=== PATIENT | male | born 1980 | race Caucasian/White ===

== ENCOUNTER 2021-11-25 09:23 | Emergency (ER) | payer BC, SELFPAY ==
[2021-11-25 09:38] VITALS: BP 132/84; PULSE 100; RESP 16; TEMP 37.4; O2SAT 95; BMI 25.4
--- NOTE | 2021-11-25 09:47 | ED.URI ---
HPI - URI/Sore Throat General Chief Complaint: Upper Respiratory Symptoms Stated Complaint: COVID+, fever, throat pain, cough, blacking out Time Seen by Provider: 11/25/21 09:28 History of Present Illness HPI Narrative: 40-year-old male nonsmoker without chronic medical problems presents with a chief complaint of ongoing fever, body aches, headache and sore throat. He states that he was diagnosed with COVID about 3 days ago. He is vaccinated but is not yet had his booster. He denies any GI symptoms such as nausea, vomiting or diarrhea. He denies any urinary complaints such as dysuria, frequency or urgency. He is in no significant work of breathing and is most concerned that he still has a fever 3 days into his illness. He has been taking Tylenol and 1 night he took some Motrin along with it. Though he has a sore throat he is able to swallow liquids. Related Data Previous Rx's Medication Instructions Recorded benzonatate 200 mg capsule 200 mg PO BID PRN #20 cap 11/25/21 Allergies Allergy/AdvReac Type Severity Reaction Status Date / Time No Known Drug Allergies Allergy Verified 11/25/21 10:27 Review of Systems Review of Systems Narrative: GENERAL: See HPI HEENT: See HP RESPIRATORY: See HPI CARDIOVASCULAR: Denies chest pain, palpitations, orthopnea, edema, GASTROINTESTINAL: Denies nausea, vomiting, abdominal pain, diarrhea, constipation, melena. : Denies dysuria, frequency, incontinence, hematuria, urinary retention. MUSCULOSKELETAL: denies weakness, joint pain, or bony pain SKIN: Denies rash, skin lesions, or other NEUROLOGIC: Denies weakness, headache, numbness, change in speech, confusion, seizures, incoordination. PSYCHIATRIC: No concerning psychosocial issues. 12 point review of systems is negative except for those stated above Exam Narrative Exam Narrative: GENERAL: [40 year old patient appears stated age. Well-developed patient, in mild distress. HEAD: Atraumatic. Normocephalic. EYES: Pupils equal round and reactive. Extraocular motions intact. No scleral icterus. No injection or drainage. ENT: Dry mucous membranes Nose without bleeding, purulent drainage. Throat without erythema, tonsillar hypertrophy or exudate. Airway patent. NECK: Trachea midline. Non tender CARDIOVASCULAR: Regular rate and rhythm without murmurs, gallops, or rubs. RESPIRATORY: Clear to auscultation. Breath sounds equal bilaterally. No wheezes, rales, or rhonchi. No increased work of breathing such as tachypnea, use of accessory muscles, no need for supplemental oxygen, very reassuring vitals GASTROINTESTINAL: Abdomen soft, non-tender, nondistended. EXTREMITIES: No edema or joint tenderness. BACK: Nontender without deformity or crepitance. No flank tenderness. NEURO: AOx3. SKIN: No rash or erythema of visible areas Initial Vital Signs Initial Vital Signs: Vital Signs Temperature 99.3 F 11/25/21 09:38 Pulse Rate 100 H 11/25/21 09:38 Respiratory Rate 16 11/25/21 09:38 Blood Pressure 132/84 11/25/21 09:38 Pulse Oximetry 95 11/25/21 09:38 Course Orders Ordered: Discontinued Medications Ketorolac Tromethamine (Ketorolac 30 Mg/Ml Vial) 30 mg IM NOW ONE Stop: 11/25/21 10:05 Last Admin: 11/25/21 10:27 Dose: 30 mg Documented by: YANI Vital Signs Vital signs: Vital Signs - 8 hr 11/25/21 09:38 Temperature 99.3 F Pulse Rate 100 H Respiratory Rate 16 Blood Pressure 132/84 Pulse Oximetry 95 MDM - URI/Sore Throat Lab Data Labs: Point of Care Testing Rapid Strep A Negative Discharge Plan Departure Patient Disposition: Home Clinical Impression: COVID-19 Instructions: DI for COVID-19 (Suspected or Confirmed ) Activity Restrictions/Additional Instructions: *You have been diagnosed with [ COVID-19] *What to do: * per recommendations from the CDC and the [facility] Department of Health * stay home except to get medical care. Restrict activities outside your home, except for getting medical care. Do not go to work, school, or public areas. Avoid using public transportation, ride sharing, or taxis. * separate yourself from other people in your home. * call ahead before visiting your doctor * Wear a facemask * Cover your coughs and sneezes * Clean your hands often * Avoid sharing household items * Clean all high-touch services every day * Monitor your symptoms and seek prompt medical attention if your illness is worsening, particularly with difficulty in breathing. You may discontinue your isolation when: 1. You have been fever-free for at least 24 hours without the use of fever reducing medication, AND 2. Your symptoms are getting better 3. At least 10 days have passed since symptoms first appeared Individuals with laboratory confirmed COVID-19 who have not had any symptoms may discontinue home isolation when at least 10 days have passed since the date of their first COVID-19 diagnostic test and have had no subsequent illness Prescriptions: New benzonatate 200 mg capsule 200 mg PO BID PRN (Reason: cough) Qty: 20 0RF
[2021-11-25] MEDS: KETOROLAC 30 MG/ML VIAL IM (10:27)
== END 2021-11-25 10:53 | disposition home or self-care (01) ==
PROVIDERS: Emergency Provider Emergency Medicine
DX: U07.1 COVID-19 (principal)
CPT/HCPCS: 87880; 96372; 99283; J1885

== ENCOUNTER 2024-06-13 20:43 | Emergency (ER) | payer BC, SELFPAY ==
[2024-06-13 21:04] VITALS: BP 137/84; PULSE 53; RESP 18; TEMP 37.1; O2SAT 98; BMI 25.4
--- NOTE | 2024-06-13 23:14 | ED.WOUNDLAC ---
HPI - Wound/Laceration General Chief Complaint: Wound/Laceration Stated Complaint: leg laceration Time Seen by Provider: 06/13/24 22:43 Source: patient Mode of arrival: Family Vehicle History of Present Illness HPI narrative: 43-year-old male presents for wound evaluation. Patient was using a table saw when a piece of plywood kicked back and struck him in the right lower extremity, causing a small laceration. Related Data Previous Rx's Medication Instructions Recorded benzonatate 200 mg capsule 200 mg PO BID PRN cough #20 caps 11/25/21 Allergies Allergy/AdvReac Type Severity Reaction Status Date / Time No Known Drug Allergies Allergy Verified 11/25/21 10:27 Exam Initial Vital Signs Initial Vital Signs: Vital Signs Temperature 98.7 F 06/13/24 21:04 Pulse Rate 53 L 06/13/24 21:04 Respiratory Rate 18 06/13/24 21:04 Blood Pressure 137/84 06/13/24 21:04 Pulse Oximetry 98 06/13/24 21:04 Oxygen Delivery Method Room Air 06/13/24 21:04 Const: Awake, alert, no acute distress, nontoxic appearing MSK: full range of motion, pulses equal Skin: 2 cm horizontal laceration over anterior proximal encinas Neuro: AO x3, CN II-XII grossly intact, moves all extremities Procedures Laceration Repair Laceration 1: Site: lower extremity Side (If applicable): right Size (cm): 2 Description: linear Depth: simple, single layer Local Anesthetic: lidocaine 1% and with epi Amount of anesthesia used (mL): 2 Pre-repair: wound explored and irrigated extensively Skin layer closed with: other (Chromic gut) Skin layer suture size: 4-0 Number of sutures: 3 Course Orders Ordered: Discontinued Medications Diphtheria/Tetanus/Acell Pertussis (Tet,Diph,Pertuss(Acell),Vac/Pf 0.5 Ml Syringe) 0.5 ml IM .ONCE ONE Stop: 06/13/24 23:24 Last Admin: 06/13/24 23:36 Dose: 0.5 ml Documented By: Vital Signs Vital signs: Vital Signs - 8 hr 06/13/24 21:04 Temperature 98.7 F Pulse Rate 53 L Respiratory Rate 18 Blood Pressure 137/84 Pulse Oximetry 98 Oxygen Delivery Method Room Air MDM - Wound/Laceration Differential Diagnosis Differential diagnosis: Likely laceration, abscess and abrasion MDM Narrative Medical decision making narrative: Laceration to anterior lower extremity. Repaired per procedure note. Discharge Plan Departure Patient Disposition: Home Clinical Impression: Laceration Instructions: DI for Laceration Repair Activity Restrictions/Additional Instructions: I placed 3 dissolvable sutures in your lower leg. Keep your wound clean and dry. If you were working or out in the environment please keep it covered with a clean bandage, otherwise if you are at home you may leave the wound uncovered. If you notice redness, drainage, swelling please return for repeat evaluation. Prescriptions: No Action benzonatate 200 mg capsule 200 mg PO BID PRN (Reason: cough) Qty: 20 0RF Referrals: Chacorta Robin MD [Primary Care Provider] - Stand Alone Forms: Patient Portal/API
[2024-06-13] MEDS: TET,DIPH,PERTUSS(ACELL),VAC/PF 0.5 ML SYRINGE IM (23:36)
[2024-06-13 23:43] VITALS: BP 128/78; PULSE 66; RESP 18; TEMP 36.8; O2SAT 99
== END 2024-06-13 23:45 | disposition home or self-care (01) ==
PROVIDERS: Emergency Provider Emergency Medicine; PCP Family Medicine
DX: S81.811A Laceration without foreign body, right lower leg, initial encounter (principal); W26.8XXA Contact with other sharp object(s), not elsewhere classified, initial encounter; Z23 Encounter for immunization
CPT/HCPCS: 12001; 90471; 99283; 90715